=== PATIENT | male | born 1950 | race Caucasian/White ===

== ENCOUNTER 2017-04-12 08:46 | Day surgery (SDC) | payer MEDICARE, OTHER ==
[~2017-04-12] VITALS: Ht 162.6 cm; Wt 73.3 kg
[~2017-04-12 08:46] MED LIST: HYD25 PO; LEVO125T75 PO; LISI20TA11 PO; LORA10TA3 PO; PRAV40TA76 PO; metoprolol ER PO
[2017-04-12 09:39] VITALS: Ht 162.6 cm; Wt 73.3 kg
[2017-04-12] MEDS ORDERED: MONT4GRA PO (09:54)
[2017-04-12] MEDS ORDERED: FLUT1AER INHALATION (09:54)
[2017-04-12] MEDS ORDERED: hydrochlorothiazide (09:54)
[2017-04-12] MEDS ORDERED: OMEP5POW MC (09:54)
[2017-04-12] MEDS ORDERED: LOSA1TAB19 PO (09:54)
[2017-04-12] MEDS ORDERED: aspirin (09:54)
[2017-04-12] MEDS ORDERED: metoprolol (09:54)
[2017-04-12] MEDS ORDERED: levothyroxine (09:54)
[2017-04-12 11:13] VITALS: BP 135/90; PULSE 59; RESP 15
[2017-04-12] MEDS ORDERED: FENTAnyl 50 MCG/ML VIAL ONE (11:16)
[2017-04-12] MEDS ORDERED: MIDAZOLAM 1 MG/ML 2 ML INJ ONE ×2 (11:17)
[2017-04-12 11:48] VITALS: BP 121/75; RESP 20
--- NOTE | 2017-04-16 07:10 | GILP ---
DATE OF PROCEDURE: 04/12/2017 PROCEDURES PERFORMED: 1. Esophagogastroduodenoscopy and biopsy. 2. Colonoscopy and biopsy. SURGEON: Renny Warner MD. PREOP DIAGNOSIS: 1. Positive occult blood in stool. 2. Changes in bowel habits with history of diarrhea. 3. Upper abdominal pain. 4. Chronic heartburn. POSTOPERATIVE DIAGNOSES: 1. Hiatal hernia. 2. Gastroesophageal reflux disease. 3. Gastritis with erosions. 4. Gastric mucosal biopsies were taken for Helicobacter pylori test. 5. Colonoscopy all the way to the cecum. 6. Occasional diverticulosis of the colon. 7. Random biopsies were taken to rule out microscopic colitis. 8. Internal hemorrhoids. 9. No colon neoplasm was identified. INDICATION: Mr. Faheem Lynne is a 66-year-old male patient who was noted to have positive occult blood in stool. He also noticed change in the bowel habits and episodes of diarrhea. He had upper abdominal pain and chronic heartburn not responding to therapy. So the patient was scheduled for endoscopy and colonoscopy for further evaluation. The procedures and possible complications were well explained to the patient. The patient understood and consented to the procedures. DESCRIPTION OF PROCEDURE: Under the influence of fentanyl and Versed, the gastroscope was carefully introduced into the esophagus. Under direct vision, it was advanced to the stomach, into the pylorus, into the duodenal bulb and descending duodenum. Findings of esophagus: The patient had a hiatal hernia and gastroesophageal reflux disease. Stomach: He had gastritis with erosions. Gastric mucosal biopsies were taken for Helicobacter pylori test. Duodenum was normal. The colonoscope was carefully introduced in the rectum. Under direct vision it was advanced all the way to the cecum. Findings: The patient had occasional diverticulosis of the colon. He also had internal hemorrhoids. Random biopsies were taken to rule out microscopic colitis. No colon neoplasm was identified. The patient tolerated the procedures very well. There were no complication from the procedures. At the end of procedure, he was awake with stable vital signs. He was discharged home in the care of his family. IMPRESSION: Please see postop diagnoses. PLAN: 1. Continue omeprazole. 2. Add Zantac 300 mg p.o. at bedtime. 3. Await histopathology report. 4. Next screening colonoscopy in 10 years. Dictated By: MD EHSAN David/adonay/ozzy /Document#: [id number]
== END 2017-04-12 12:44 | disposition home or self-care (01) ==
LOC: GIL 08:46
PROVIDERS: ATTEND Internal Medicine Gastroenterology
DX: K21.9 Gastro-esophageal reflux disease without esophagitis (principal); K44.9 Diaphragmatic hernia without obstruction or gangrene; K29.70 Gastritis, unspecified, without bleeding; K57.30 Diverticulosis of large intestine without perforation or abscess without bleeding; K64.8 Other hemorrhoids; R19.5 Other fecal abnormalities; I10 Essential (primary) hypertension
CPT/HCPCS: 43239; 45380; 87081; 88305; J2250; J3010